=== PATIENT | female | born 1970 | race Hispanic/Latino ===

== ENCOUNTER 2019-04-10 14:24 | Emergency (ER) | payer MEDICAID ==
[2019-04-10] MEDS ORDERED: IBUPROFEN 600 MG TABLET ONE (14:52)
== END 2019-04-10 14:58 | disposition home or self-care (01) ==
LOC: EDH 14:24
DX: M25.532 Pain in left wrist (principal); K21.9 Gastro-esophageal reflux disease without esophagitis; I10 Essential (primary) hypertension; E11.9 Type 2 diabetes mellitus without complications; J45.909 Unspecified asthma, uncomplicated; Y08.89XA Assault by other specified means, initial encounter; Y93.89 Activity, other specified; Y92.89 Other specified places as the place of occurrence of the external cause; Y99.8 Other external cause status
CPT/HCPCS: 73090; 73110

== ENCOUNTER 2019-04-15 20:09 | Emergency (ER) | payer MEDICAID ==
[2019-04-15] MEDS ORDERED: OCTYL 2-CYANOACRYLATE 1 EACH TP ONE (20:51)
== END 2019-04-15 21:39 | disposition home or self-care (01) ==
LOC: EDH 20:09
DX: S61.412A Laceration without foreign body of left hand, initial encounter (principal); I10 Essential (primary) hypertension; E11.9 Type 2 diabetes mellitus without complications; J45.909 Unspecified asthma, uncomplicated; K21.9 Gastro-esophageal reflux disease without esophagitis; Z90.89 Acquired absence of other organs; Z90.710 Acquired absence of both cervix and uterus; W26.0XXA Contact with knife, initial encounter; Y93.G3 Activity, cooking and baking; Y92.009 Unspecified place in unspecified non-institutional (private) residence as the place of occurrence of the external cause; Y99.8 Other external cause status
CPT/HCPCS: 12041

== ENCOUNTER → 2025-09-15 | Outpatient (CLI) | payer MEDICAID ==
[~2025-09-15] MED LIST: ALPR-412 PO; AMLO5TAB6 PO; ATOR20TA65 PO; AUD IH; CEFD300C3 PO; CETI10CA5 PO; FLUT1DIS IH; LEVO200C3 PO; LORA10TA7 PO; METF750T46 PO; OMEP20TA2 PO
--- NOTE | 2025-09-15 13:40 | NUR ---
MBSS COMPLETED (OUTPATIENT). Deep transient penetration with thin liquids via cup sip with head tilting up followed by no cough response. No aspirations observed. RECOMMENDATIONS: regular solids, thin liquids and pills whole 1 per swallow or crushed with pureed as tolerated. COMPENSATORY STRATEGIES: 1. sit upright during oral intake 2. DO NOT TILT HEAD BACK WHEN EATING/DRINKING 3. slow oral intake 4. extra dry swallows NOTE: Pt with Hx of choking with solids/liquids. Pt with PMHx of GERD and dilation of UES; however no improvements with swallowing post dilation. Pt received radiation/chemo 28 years ago due to thyroid cancer with thyroidectomy. DIAGNOSTIC FINDINGS: Pt presented with mild pharyngeal dysphagia characterized by decreased tongue base retraction; delayed pharyngeal response trigger; decreased sensation; and decreased hyo-laryngeal elevation/excursion evidenced by premature spillage to valleculae with occasionally spillover to pyriform sinuses; residue on base of tongue, valleculae, pyriform sinuses and posterior pharyngeal wall cleared with extra dry swallows; resulting in deep transient penetration with thin liquids via cup sip when tilting head upwards; no penetrations with liquids with head in neutral position. [employer] WIRER reviewed results and recommendations with patient. SUBASSEMBL[employer] WIRER educated patient on risks and consequences of aspiration. Speech therapy not warranted at this time. Mild pharyngeal dysphagia best managed with compensatory strategies. All questions answered. Addendum: 09/15/[address]LEEN CASTILLO Amended: Links added.
--- NOTE | 2025-09-16 06:01 | HMCIMG ---
Fluoroscopy is utilized for the procedure. The total fluoroscopy time is 003.4 min. The total dose area product is 261.38 (uGym2). The interpreting radiologist was not present during the procedure. /[place]
== END | disposition home or self-care (01) ==
LOC: RAH 13:10
PROVIDERS: ATTEND Internal Medicine Gastroenterology
DX: R13.10 Dysphagia, unspecified (principal); R63.30 Feeding difficulties, unspecified
CPT/HCPCS: 74230; 92611